=== PATIENT | male | born 1935 | race Caucasian/White ===

== ENCOUNTER 2019-02-04 21:14 | Emergency (ER) | payer OTHER ==
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
[2019-02-04 22:55] VITALS: BP 121/57; PULSE 66; TEMP 98.4; BMI 28.0
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
== END 2019-02-05 02:45 ==
LOC: JER 21:14
DX: S00.03XA Contusion of scalp, initial encounter (principal); S00.83XA Contusion of other part of head, initial encounter; Y04.2XXA Assault by strike against or bumped into by another person, initial encounter; Y93.89 Activity, other specified; Y92.098 Other place in other non-institutional residence as the place of occurrence of the external cause; Y99.8 Other external cause status; I10 Essential (primary) hypertension; M10.9 Gout, unspecified; E78.00 Pure hypercholesterolemia, unspecified; E07.9 Disorder of thyroid, unspecified
CPT/HCPCS: 70450-TC; 70486-TC; 72125-TC; 99282-25

== ENCOUNTER 2019-05-23 12:06 | Emergency (ER) | payer OTHER ==
[2019-05-23 12:23] VITALS: BP 133/67; PULSE 63; TEMP 97.8; BMI 28.0
--- NOTE | 2019-05-23 14:46 | PDOC ---
History of Present Illness - General Chief Complaint: Head/Neck problem Stated Complaint: SLIP AND FALL Time Seen by Provider: 05/23/19 12:52 History Source: Patient Exam Limitations: No Limitations Past History - Past Medical History Allergies/Adverse Reactions: Allergies Allergy/AdvReac Type Severity Reaction Status Date / Time No Known Allergies Allergy Verified 05/23/19 12:19 Home Medications: Ambulatory Orders Folic Acid 1 mg PO DAILY 08/25/11 Metoprolol "Xl" (Sustain Act) [Toprol Xl] 75 mg PO DAILY 08/25/11 Allopurinol [Zyloprim] 300 mg PO DAILY 04/08/12 Citalopram Hydrobromide [Celexa] 20 mg PO DAILY 04/08/12 Multivitamin [Multivitamins] 1 each PO DAILY 04/08/12 Budesonide/Formeterol Fumarate [SYMBICORT 160/4.5mcg -] 1 inh PO BID 05/23/19 Clopidogrel Bisulfate [Plavix] 75 mg PO DAILY 05/23/19 Ferrous Sulfate 325 mg PO DAILY 05/23/19 Lisinopril [Zestril] 2.5 mg PO DAILY 05/23/19 Ranitidine HCl [Zantac] 150 mg PO DAILY 05/23/19 Simvastatin [Zocor] 20 mg PO HS 05/23/19 Tamsulosin HCl [Flomax] 0.4 mg PO DAILY 05/23/19 Vit B Complex 100 Combo No.2 [B-100 Complex] 05/23/19 Vit D3-Vit K/Berberine/Hops [Ostera Tablet] 1 each PO DAILY 05/23/19 COPD: No GI Disorders: Yes HTN: Yes Hypercholesterolemia: Yes Thyroid Disease: Yes - Immunization History Immunization Up to Date: Yes - Psycho Social/Smoking Cessation Hx Smoking Status: Yes Smoking History: Current every day smoker Have you smoked in the past 12 months: Yes Number of Cigarettes Smoked Daily: 0 Information on smoking cessation initiated: No Hx Alcohol Use: No Drug/Substance Use Hx: No *Physical Exam - Vital Signs Last Vital Signs Temp Pulse Resp BP Pulse Ox 97.8 F 63 18 133/67 100 05/23/19 12:21 05/23/19 12:21 05/23/19 12:21 05/23/19 12:21 05/23/19 12:21 - Physical Exam General Appearance: No: Apparent Distress HEENT: positive: ORTIZ Neck: positive: Supple, Other (swelling along B/L lateral aspect of neck, nontender to touch, feels soft to touch, no change in skin color, no hematoma). negative: Rigid, Decreased range of motion, Tender lateral, Tender midline, Thyromegaly Respiratory/Chest: positive: Lungs Clear, Normal Breath Sounds. negative: Respiratory Distress Cardiovascular: positive: Regular Rhythm, Regular Rate, S1, S2. negative: Murmur Neurologic: positive: Fully Oriented, Alert, Normal Mood/Affect, Motor Strength 5/ ED Treatment Course - RADIOLOGY Radiology Studies Ordered: Category Date Time Status SOFT TISSUE NECK CT W/O CONTR [CT] Stat CT Scan 05/23/19 13:07 Completed Medical Decision Making - Medical Decision Making 83 y/o M hx of HTN, HLD, gout from [facility] presents for L sided lateral neck swelling since mechanical fall out of chair last week. States he did not even notice the swelling until a doctor evaluated him, noticed it and advised him to come to ER for evaluation. Denies dizziness, sob, cp, abd pain, n/v, numbness/tingling/weakness of extremities, headache, neck pain. CT soft tissue neck with no acute findings noted Does not appear as hematoma and does not cause patient any pain D/W radiologist as well regarding CT findings Cause of swelling unclear but not affecting airway Stable for dc 05/23/19 14:47 Discharge - Discharge Information Problems reviewed: Yes Clinical Impression/Diagnosis: Fall Qualifiers: Encounter type: initial encounter Qualified Code(s): W19.XXXA - Unspecified fall, initial encounter Condition: Stable Disposition: HOME - Admission No - Additional Discharge Information Prescription Drug Monitoring Program (I-STOP) results: I-STOP not reviewed - Follow up/Referral Referrals: Nara Hernandez [Primary Care Provider] - 2 Days - Patient Discharge Instructions Additional Instructions: Thank you for choosing [facility]. It was a pleasure taking care of you. Your CT scan of neck was unremarkable Please follow-up outpatient with your doctor for further evaluation Return to the Emergency Department if your symptoms worsen or persist or have other concerning symptoms. - Post Discharge Activity
== END 2019-05-23 14:58 | disposition home or self-care (01) ==
LOC: JERFT 12:06
DX: R22.1 Localized swelling, mass and lump, neck (principal); Y93.89 Activity, other specified; W07.XXXA Fall from chair, initial encounter; Y92.098 Other place in other non-institutional residence as the place of occurrence of the external cause; Y99.8 Other external cause status; I10 Essential (primary) hypertension; E78.5 Hyperlipidemia, unspecified; E07.9 Disorder of thyroid, unspecified; F17.210 Nicotine dependence, cigarettes, uncomplicated; Z87.19 Personal history of other diseases of the digestive system; Z79.02 Long term (current) use of antithrombotics/antiplatelets
CPT/HCPCS: 70490-TC; 99281-25

== ENCOUNTER 2019-06-08 10:08 | Emergency (ER) | payer OTHER ==
[2019-06-08 10:19] VITALS: BMI 27.4
[2019-06-08] MEDS ORDERED: DIPHTH,PERTUSS(ACELL),TET 0.5 ML DISP.SYRIN IM ONE ×2 (10:39→10:47)
[2019-06-08] MEDS ORDERED: ACETAMINOPHEN 500 MG TABLET (FP) PO ONE (10:45)
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
[2019-06-08] MEDS ORDERED: ACETAMINOPHEN 500 MG TABLET (FP) ONE (11:09)
[2019-06-08 14:29] VITALS: BP 126/56; PULSE 65; TEMP 97.9
== END 2019-06-08 17:07 | disposition home or self-care (01) ==
LOC: JER 10:08
PROC: 0HQFXZZ Repair Right Hand Skin, External Approach (ICD-10-PCS; principal; 2019-06-08)
DX: S51.011A Laceration without foreign body of right elbow, initial encounter (principal); X58.XXXA Exposure to other specified factors, initial encounter; Y93.89 Activity, other specified; Y92.89 Other specified places as the place of occurrence of the external cause; Y99.8 Other external cause status; Z87.891 Personal history of nicotine dependence; E07.9 Disorder of thyroid, unspecified; I10 Essential (primary) hypertension; K92.9 Disease of digestive system, unspecified
CPT/HCPCS: 70450-TC; 72125-TC; 73070-TC-RT-FY; 90715; 99282-25

== ENCOUNTER 2020-04-21 09:07 | Inpatient (IN) | payer OTHER ==
[2020-04-21 11:16] LABS: BASO % 0.9 % (0-2.0); EOS % 0.9 % (0-4.5); HEMATOCRIT 29.7 % (35.4-49); HEMOGLOBIN 9.7 GM/dL (11.7-16.9); MCH 29.6 pg (25.7-33.7); MCHC 32.7 g/dl (32.0-35.9); MEAN CELL VOLUME 90.5 fl (80-96); MEAN PLT VOLUME 8.8 fl (7.5-11.1); NEUT % 82.2 % (42.8-82.8); PLATELET COUNT 176 K/MM3 (134-434); RBC 3.29 M/mm3 (4.00-5.60); RDW 15.7 % (11.9-15.9); WHITE BLOOD COUNT 5.6 K/mm3 (4.0-10.0)
[2020-04-21 11:52] LABS: CHLORIDE 106 mmol/L (98-107); SODIUM 142 mmol/L (136-145)
[2020-04-21 11:54] LABS: CALCIUM 13.4 mg/dL (8.5-10.1)
[2020-04-21 11:55] LABS: ALBUMIN 3.2 g/dl (3.4-5.0); ANION GAP 8 MMOL/L (8-16); CO2 27 mmol/L (21-32); GLUCOSE,RANDOM 92 mg/dL (74-106)
[2020-04-21 11:56] LABS: BLOOD UREA NITROGEN 57.8 mg/dL (7-18)
[2020-04-21] MEDS ORDERED: SODIUM CHLORIDE 0.9% 500 ML INFUS.BAG IV ONE ×3 (11:57→14:28)
[2020-04-21 11:58] LABS: CREATININE 3.5 mg/dL (0.55-1.3); SGOT/AST 34 U/L (15-37); SGPT/ALT 15 U/L (13-61)
[2020-04-21 12:00] LABS: BILIRUBIN,TOTAL 0.4 mg/dL (0.2-1); TOT PROT 6.1 g/dl (6.4-8.2)
[2020-04-21 12:01] LABS: ALK PHOS 60 U/L (45-117)
[2020-04-21 16:38] LABS: URINE APPEARANCE CLEAR; URINE BILIRUBIN NEGATIVE (NEGATIVE); URINE COLOR YELLOW; URINE GLUCOSE (UA) NEGATIVE (NEGATIVE); URINE KETONE NEGATIVE (NEGATIVE); URINE LEUK ESTERASE NEGATIVE (NEGATIVE); URINE NITRITE NEGATIVE (NEGATIVE); URINE PROTEIN TRACE (NEGATIVE); URINE UROBILINOGEN 0.2 mg/dL (0.2-1.0)
[2020-04-21] MEDS ORDERED: traMADol HCL 50 MG TABLET PO PRN (17:38)
[2020-04-21] MEDS ORDERED: SODIUM CHLORIDE 1,000 ML IV SCH (18:00)
[2020-04-21] MEDS: MELATONIN 5 MG TABLETS PO SCH (22:15)
[2020-04-22 07:16] LABS: HEMOGLOBIN 8.5 GM/dL (11.7-16.9); MCH 29.6 pg (25.7-33.7); MCHC 32.6 g/dl (32.0-35.9); MEAN CELL VOLUME 90.8 fl (80-96); MEAN PLT VOLUME 8.6 fl (7.5-11.1); PLATELET COUNT 146 K/MM3 (134-434); RBC 2.86 M/mm3 (4.00-5.60); RDW 15.9 % (11.9-15.9)
[2020-04-22 07:42] LABS: BLOOD UREA NITROGEN 47.8 mg/dL (7-18)
[2020-04-22 07:43] LABS: MAGNESIUM 1.1 mg/dL (1.8-2.4)
[2020-04-22 07:45] LABS: CREATININE 2.9 mg/dL (0.55-1.3)
[2020-04-22] MEDS: metoPROLOL SUCCINATE 25 MG TAB.SR.24H (FP) PO SCH (11:28)
[2020-04-22] MEDS: CLOPIDOGREL BISULFATE 75 MG TABLET (FP) PO SCH (11:29)
[2020-04-22] MEDS: FAMOTIDINE 20 MG TABLET PO SCH (11:29)
[2020-04-22] MEDS: CITALOPRAM HYDROBROMIDE 20 MG TABLET PO SCH (11:29)
[2020-04-22] MEDS ORDERED: FUROSEMIDE 40 MG/4 ML INJECTABLE VIAL IVPUSH ONE (13:05)
[2020-04-22] MEDS ORDERED: SODIUM CHLORIDE 1,000 ML IV SCH (18:30)
[2020-04-22] MEDS: MELATONIN 5 MG TABLETS PO SCH (21:45)
[2020-04-23 07:54] LABS: BASO % 1.2 % (0-2.0); EOS % 1.5 % (0-4.5); HEMATOCRIT 29.4 % (35.4-49); HEMOGLOBIN 9.8 GM/dL (11.7-16.9); LYMPH % 8.7 % (8-40); MCH 30.2 pg (25.7-33.7); MCHC 33.3 g/dl (32.0-35.9); MEAN CELL VOLUME 90.9 fl (80-96); MEAN PLT VOLUME 8.1 fl (7.5-11.1); MONO % 12.1 % (3.8-10.2); NEUT % 76.5 % (42.8-82.8); PLATELET COUNT 174 K/MM3 (134-434); RBC 3.24 M/mm3 (4.00-5.60); RDW 15.6 % (11.9-15.9)
[2020-04-23 08:18] LABS: CALCIUM 11.4 mg/dL (8.5-10.1)
[2020-04-23 08:19] LABS: ALBUMIN 2.8 g/dl (3.4-5.0); BLOOD UREA NITROGEN 45.3 mg/dL (7-18)
[2020-04-23 08:22] LABS: CREATININE 2.5 mg/dL (0.55-1.3)
[2020-04-23 08:23] LABS: BILIRUBIN,TOTAL 0.8 mg/dL (0.2-1); TOT PROT 5.5 g/dl (6.4-8.2)
[2020-04-23] MEDS: CITALOPRAM HYDROBROMIDE 20 MG TABLET PO SCH (09:31)
[2020-04-23] MEDS: CLOPIDOGREL BISULFATE 75 MG TABLET (FP) PO SCH (09:31)
[2020-04-23] MEDS: FAMOTIDINE 20 MG TABLET PO SCH (09:31)
[2020-04-23] MEDS: metoPROLOL SUCCINATE 25 MG TAB.SR.24H (FP) PO SCH (09:31)
[2020-04-23] MEDS: SODIUM CHLORIDE 1,000 ML IV SCH (14:02)
[2020-04-23] MEDS: MELATONIN 5 MG TABLETS PO SCH (22:24)
[2020-04-24] MEDS: SODIUM CHLORIDE 1,000 ML IV SCH ×3 (06:50→20:56)
[2020-04-24 07:12] LABS: BASO % 1.1 % (0-2.0); EOS % 1.7 % (0-4.5); HEMATOCRIT 25.8 % (35.4-49); HEMOGLOBIN 8.6 GM/dL (11.7-16.9); LYMPH % 9.8 % (8-40); MCH 30.2 pg (25.7-33.7); MCHC 33.2 g/dl (32.0-35.9); MEAN PLT VOLUME 8.3 fl (7.5-11.1); MONO % 15.1 % (3.8-10.2); NEUT % 72.3 % (42.8-82.8); PLATELET COUNT 155 K/MM3 (134-434); RBC 2.83 M/mm3 (4.00-5.60); WHITE BLOOD COUNT 4.7 K/mm3 (4.0-10.0)
[2020-04-24 07:29] LABS: CALCIUM 11.3 mg/dL (8.5-10.1)
[2020-04-24 07:30] LABS: ALBUMIN 2.5 g/dl (3.4-5.0); BLOOD UREA NITROGEN 40.7 mg/dL (7-18); MAGNESIUM 1.2 mg/dL (1.8-2.4)
[2020-04-24 07:31] LABS: BILIRUBIN,TOTAL 1.2 mg/dL (0.2-1)
[2020-04-24 07:32] LABS: PHOSPHOROUS 3.2 mg/dL (2.5-4.9)
[2020-04-24 07:33] LABS: CREATININE 2.4 mg/dL (0.55-1.3)
[2020-04-24] MEDS ORDERED: PT OWN MED DRAWER 7, Y5N ONE (09:46)
[2020-04-24] MEDS: FAMOTIDINE 20 MG TABLET PO SCH (09:55)
[2020-04-24] MEDS: CLOPIDOGREL BISULFATE 75 MG TABLET (FP) PO SCH (09:55)
[2020-04-24] MEDS: CITALOPRAM HYDROBROMIDE 20 MG TABLET PO SCH (09:55)
[2020-04-24] MEDS: metoPROLOL SUCCINATE 25 MG TAB.SR.24H (FP) PO SCH (09:55)
[2020-04-24 18:08] LABS: FREE KAPPA,SERUM 23.4 mg/L (3.3-19.4)
[2020-04-24] MEDS: MELATONIN 5 MG TABLETS PO SCH (21:04)
[2020-04-25 08:11] LABS: BASO % 0.9 % (0-2.0); EOS % 1.7 % (0-4.5); HEMATOCRIT 26.7 % (35.4-49); HEMOGLOBIN 8.8 GM/dL (11.7-16.9); LYMPH % 8.4 % (8-40); MCH 29.9 pg (25.7-33.7); MCHC 32.9 g/dl (32.0-35.9); MEAN CELL VOLUME 90.8 fl (80-96); MEAN PLT VOLUME 8.1 fl (7.5-11.1); MONO % 14.3 % (3.8-10.2); NEUT % 74.7 % (42.8-82.8); PLATELET COUNT 162 K/MM3 (134-434); RBC 2.94 M/mm3 (4.00-5.60); RDW 15.5 % (11.9-15.9); WHITE BLOOD COUNT 4.7 K/mm3 (4.0-10.0)
[2020-04-25 08:24] LABS: ALBUMIN 2.5 g/dl (3.4-5.0); CALCIUM 10.7 mg/dL (8.5-10.1)
[2020-04-25 08:25] LABS: BLOOD UREA NITROGEN 39.1 mg/dL (7-18); MAGNESIUM 1.2 mg/dL (1.8-2.4)
[2020-04-25 08:28] LABS: CREATININE 2.2 mg/dL (0.55-1.3); PHOSPHOROUS 3.1 mg/dL (2.5-4.9)
[2020-04-25 08:29] LABS: BILIRUBIN,TOTAL 0.9 mg/dL (0.2-1)
[2020-04-25] MEDS: CITALOPRAM HYDROBROMIDE 20 MG TABLET PO SCH (09:39)
[2020-04-25] MEDS: CLOPIDOGREL BISULFATE 75 MG TABLET (FP) PO SCH (09:39)
[2020-04-25] MEDS: metoPROLOL SUCCINATE 25 MG TAB.SR.24H (FP) PO SCH (09:39)
[2020-04-25] MEDS: FAMOTIDINE 20 MG TABLET PO SCH (09:39)
[2020-04-25] MEDS: SODIUM CHLORIDE 1,000 ML IV SCH ×2 (09:42→16:45)
[2020-04-25] MEDS ORDERED: MAGNESIUM 2GM/50ML STERILE WATER IVPB IVPB ONE (11:45)
[2020-04-25] MEDS: MELATONIN 5 MG TABLETS PO SCH (21:10)
[2020-04-26 07:50] LABS: BASO % 1.5 % (0-2.0); EOS % 1.7 % (0-4.5); HEMOGLOBIN 8.9 GM/dL (11.7-16.9); LYMPH % 7.8 % (8-40); MCH 29.7 pg (25.7-33.7); MEAN CELL VOLUME 89.9 fl (80-96); MONO % 14.2 % (3.8-10.2); NEUT % 74.8 % (42.8-82.8); PLATELET COUNT 173 K/MM3 (134-434); WHITE BLOOD COUNT 4.3 K/mm3 (4.0-10.0)
[2020-04-26 08:07] LABS: CALCIUM 10.3 mg/dL (8.5-10.1)
[2020-04-26 08:08] LABS: ALBUMIN 2.4 g/dl (3.4-5.0); BLOOD UREA NITROGEN 37.9 mg/dL (7-18); MAGNESIUM 1.4 mg/dL (1.8-2.4)
[2020-04-26 08:11] LABS: BILIRUBIN,TOTAL 0.4 mg/dL (0.2-1)
[2020-04-26] MEDS ORDERED: MAGNESIUM SULF 50% (8.12 MEQ/2 ML-1 GM VIAL) IVPB ONE (09:24)
[2020-04-26] MEDS ORDERED: MAGNESIUM SULFATE IN WATER 2 GM/50 ML IVPB IVPB ONE (09:30)
[2020-04-26] MEDS: metoPROLOL SUCCINATE 25 MG TAB.SR.24H (FP) PO SCH (10:59)
[2020-04-26] MEDS: CLOPIDOGREL BISULFATE 75 MG TABLET (FP) PO SCH (10:59)
[2020-04-26] MEDS: FAMOTIDINE 20 MG TABLET PO SCH (10:59)
[2020-04-26] MEDS: CITALOPRAM HYDROBROMIDE 20 MG TABLET PO SCH (11:00)
[2020-04-26] MEDS: MELATONIN 5 MG TABLETS PO SCH (21:16)
[2020-04-26] MEDS: SODIUM CHLORIDE 1,000 ML IV SCH ×2 (21:17→21:22)
[2020-04-27] MEDS: SODIUM CHLORIDE 1,000 ML IV SCH ×3 (04:01→14:24)
[2020-04-27 06:40] LABS: BASO % 1.3 % (0-2.0); EOS % 1.4 % (0-4.5); HEMATOCRIT 27.4 % (35.4-49); LYMPH % 6.6 % (8-40); MCH 29.7 pg (25.7-33.7); MCHC 32.6 g/dl (32.0-35.9); MEAN CELL VOLUME 90.9 fl (80-96); MEAN PLT VOLUME 8.3 fl (7.5-11.1); MONO % 14.8 % (3.8-10.2); NEUT % 75.9 % (42.8-82.8); PLATELET COUNT 177 K/MM3 (134-434); RBC 3.02 M/mm3 (4.00-5.60); RDW 15.8 % (11.9-15.9); WHITE BLOOD COUNT 5.2 K/mm3 (4.0-10.0)
[2020-04-27 07:11] LABS: ALBUMIN 2.3 g/dl (3.4-5.0)
[2020-04-27 07:12] LABS: BLOOD UREA NITROGEN 40.8 mg/dL (7-18); MAGNESIUM 1.9 mg/dL (1.8-2.4)
[2020-04-27 07:16] LABS: BILIRUBIN,TOTAL 0.4 mg/dL (0.2-1); TOT PROT 4.8 g/dl (6.4-8.2)
[2020-04-27] MEDS: CITALOPRAM HYDROBROMIDE 20 MG TABLET PO SCH (09:28)
[2020-04-27] MEDS: CLOPIDOGREL BISULFATE 75 MG TABLET (FP) PO SCH (09:28)
[2020-04-27] MEDS: FAMOTIDINE 20 MG TABLET PO SCH (09:28)
[2020-04-27] MEDS: MELATONIN 5 MG TABLETS PO SCH (21:06)
[2020-04-28] MEDS: SODIUM CHLORIDE 1,000 ML IV SCH ×2 (00:43→14:43)
[2020-04-28 00:44] LABS: URINE APPEARANCE CLOUDY; URINE BILIRUBIN NEGATIVE (NEGATIVE); URINE COLOR YELLOW; URINE GLUCOSE (UA) NEGATIVE (NEGATIVE); URINE KETONE NEGATIVE (NEGATIVE); URINE LEUK ESTERASE NEGATIVE (NEGATIVE); URINE NITRITE NEGATIVE (NEGATIVE); URINE PROTEIN NEGATIVE (NEGATIVE); URINE UROBILINOGEN 0.2 mg/dL (0.2-1.0)
[2020-04-28 06:45] LABS: BASO % 1.1 % (0-2.0); EOS % 0.8 % (0-4.5); HEMATOCRIT 27.4 % (35.4-49); HEMOGLOBIN 9.1 GM/dL (11.7-16.9); LYMPH % 7.5 % (8-40); MCHC 33.2 g/dl (32.0-35.9); MEAN CELL VOLUME 90.4 fl (80-96); MEAN PLT VOLUME 8.2 fl (7.5-11.1); MONO % 10.9 % (3.8-10.2); NEUT % 79.7 % (42.8-82.8); PLATELET COUNT 181 K/MM3 (134-434); RBC 3.03 M/mm3 (4.00-5.60); RDW 15.7 % (11.9-15.9); WHITE BLOOD COUNT 4.6 K/mm3 (4.0-10.0)
[2020-04-28 06:58] LABS: CALCIUM 9.6 mg/dL (8.5-10.1)
[2020-04-28 07:00] LABS: ALBUMIN 2.4 g/dl (3.4-5.0); BLOOD UREA NITROGEN 41.2 mg/dL (7-18); MAGNESIUM 1.4 mg/dL (1.8-2.4)
[2020-04-28 07:02] LABS: PHOSPHOROUS 2.9 mg/dL (2.5-4.9)
[2020-04-28 07:04] LABS: BILIRUBIN,TOTAL 0.4 mg/dL (0.2-1)
[2020-04-28 07:05] LABS: TOT PROT 4.9 g/dl (6.4-8.2)
[2020-04-28] MEDS ORDERED: SODIUM CHLORIDE 1,000 ML IV SCH (07:29)
[2020-04-28] MEDS ORDERED: MAGNESIUM SULF 50% (8.12 MEQ/2 ML-1 GM VIAL) IVPB ONE (07:30)
[2020-04-28] MEDS: metoPROLOL SUCCINATE 25 MG TAB.SR.24H (FP) PO SCH (09:26)
[2020-04-28] MEDS: FAMOTIDINE 20 MG TABLET PO SCH (09:26)
[2020-04-28] MEDS: CITALOPRAM HYDROBROMIDE 20 MG TABLET PO SCH (09:26)
[2020-04-28 13:44] VITALS: BMI 23.8
[2020-04-28] MEDS: MELATONIN 5 MG TABLETS PO SCH (21:17)
[2020-04-29] MEDS: SODIUM CHLORIDE 1,000 ML IV SCH (05:40)
[2020-04-29 08:40] LABS: BASO % 2.5 % (0-2.0); EOS % 1.9 % (0-4.5); HEMATOCRIT 25.6 % (35.4-49); HEMOGLOBIN 8.5 GM/dL (11.7-16.9); LYMPH % 8.4 % (8-40); MCH 30.1 pg (25.7-33.7); MCHC 33.4 g/dl (32.0-35.9); MEAN CELL VOLUME 90.1 fl (80-96); MEAN PLT VOLUME 8.5 fl (7.5-11.1); MONO % 12.2 % (3.8-10.2); PLATELET COUNT 177 K/MM3 (134-434); RBC 2.84 M/mm3 (4.00-5.60); RDW 15.5 % (11.9-15.9); WHITE BLOOD COUNT 4.7 K/mm3 (4.0-10.0)
[2020-04-29 08:48] LABS: ALBUMIN 2.3 g/dl (3.4-5.0); CALCIUM 9.7 mg/dL (8.5-10.1); MAGNESIUM 1.6 mg/dL (1.8-2.4)
[2020-04-29 08:53] LABS: BILIRUBIN,TOTAL 0.8 mg/dL (0.2-1); TOT PROT 4.8 g/dl (6.4-8.2)
[2020-04-29] MEDS: FAMOTIDINE 20 MG TABLET PO SCH (09:07)
[2020-04-29] MEDS: metoPROLOL SUCCINATE 25 MG TAB.SR.24H (FP) PO SCH (09:07)
[2020-04-29] MEDS: CITALOPRAM HYDROBROMIDE 20 MG TABLET PO SCH (09:07)
[2020-04-29] MEDS ORDERED: POLYETHYLENE GLYCOL 3350 119 GM BTL PO ONE (10:41)
[2020-04-29] MEDS ORDERED: MAGNESIUM SULF 50% (8.12 MEQ/2 ML-1 GM VIAL) IVPB ONE (14:22)
[2020-04-29] MEDS: MELATONIN 5 MG TABLETS PO SCH (21:51)
[2020-04-30 07:24] LABS: BASO % 1.6 % (0-2.0); EOS % 1.3 % (0-4.5); HEMATOCRIT 27.2 % (35.4-49); HEMOGLOBIN 9.1 GM/dL (11.7-16.9); LYMPH % 7.8 % (8-40); MCHC 33.6 g/dl (32.0-35.9); MEAN CELL VOLUME 89.4 fl (80-96); MEAN PLT VOLUME 8.6 fl (7.5-11.1); MONO % 12.4 % (3.8-10.2); NEUT % 76.9 % (42.8-82.8); PLATELET COUNT 192 K/MM3 (134-434); RBC 3.04 M/mm3 (4.00-5.60); RDW 15.1 % (11.9-15.9)
[2020-04-30 07:33] LABS: ALBUMIN 2.5 g/dl (3.4-5.0); BLOOD UREA NITROGEN 37.2 mg/dL (7-18); CALCIUM 10.2 mg/dL (8.5-10.1); MAGNESIUM 1.8 mg/dL (1.8-2.4)
[2020-04-30 07:36] LABS: CREATININE 2.1 mg/dL (0.55-1.3)
[2020-04-30 07:38] LABS: BILIRUBIN,TOTAL 0.4 mg/dL (0.2-1); TOT PROT 5.1 g/dl (6.4-8.2)
[2020-04-30] MEDS: CITALOPRAM HYDROBROMIDE 20 MG TABLET PO SCH (09:14)
[2020-04-30] MEDS: metoPROLOL SUCCINATE 25 MG TAB.SR.24H (FP) PO SCH (09:14)
[2020-04-30] MEDS: FAMOTIDINE 20 MG TABLET PO SCH (09:14)
[2020-04-30] MEDS: MELATONIN 5 MG TABLETS PO SCH (21:09)
[2020-05-01 08:03] LABS: INR 1.13 (0.83-1.09); PROTHROMBIN TIME (PATIENT) 13.9 SEC (9.7-13.0)
[2020-05-01] MEDS: FAMOTIDINE 20 MG TABLET PO SCH (09:50)
[2020-05-01] MEDS: metoPROLOL SUCCINATE 25 MG TAB.SR.24H (FP) PO SCH (09:50)
[2020-05-01] MEDS: CITALOPRAM HYDROBROMIDE 20 MG TABLET PO SCH (09:50)
[2020-05-01 15:06] LABS: ALBUMIN % 20.6 % (.); ALPHA-1 FOR UPE 4.5 % (.); TOTAL PROTEIN, URINE 12.5 mg/dL (Not Estab.)
[2020-05-01] MEDS: MELATONIN 5 MG TABLETS PO SCH (21:12)
[2020-05-02 07:23] LABS: BASO % 1.5 % (0-2.0); HEMATOCRIT 30.2 % (35.4-49); HEMOGLOBIN 10.2 GM/dL (11.7-16.9); LYMPH % 7.3 % (8-40); MCH 30.2 pg (25.7-33.7); MCHC 33.9 g/dl (32.0-35.9); MEAN CELL VOLUME 89.2 fl (80-96); MEAN PLT VOLUME 8.9 fl (7.5-11.1); NEUT % 76.2 % (42.8-82.8); PLATELET COUNT 232 K/MM3 (134-434); RBC 3.39 M/mm3 (4.00-5.60); RDW 15.5 % (11.9-15.9); WHITE BLOOD COUNT 7.1 K/mm3 (4.0-10.0)
[2020-05-02 07:41] LABS: ALBUMIN 2.5 g/dl (3.4-5.0); CALCIUM 10.4 mg/dL (8.5-10.1)
[2020-05-02 07:42] LABS: BLOOD UREA NITROGEN 39.4 mg/dL (7-18); MAGNESIUM 1.5 mg/dL (1.8-2.4)
[2020-05-02 07:44] LABS: PHOSPHOROUS 3.6 mg/dL (2.5-4.9)
[2020-05-02 07:45] LABS: CREATININE 2.1 mg/dL (0.55-1.3)
[2020-05-02 07:46] LABS: BILIRUBIN,TOTAL 0.6 mg/dL (0.2-1); TOT PROT 5.2 g/dl (6.4-8.2)
[2020-05-02] MEDS: CITALOPRAM HYDROBROMIDE 20 MG TABLET PO SCH (10:44)
[2020-05-02] MEDS: metoPROLOL SUCCINATE 25 MG TAB.SR.24H (FP) PO SCH (10:44)
[2020-05-02] MEDS: FAMOTIDINE 20 MG TABLET PO SCH (10:44)
[2020-05-02 11:45] VITALS: PULSE 71
[2020-05-02 18:24] VITALS: BP 162/60; TEMP 97.7
== END 2020-05-02 16:00 | DRG 682 ==
LOC: JER 09:07 → JERBED 14:13 → J4S 22:04 → J7W 04-29 18:44
PROVIDERS: ADMIT Internal Medicine
PROC: 07D63ZX Extraction of Left Axillary Lymphatic, Percutaneous Approach, Diagnostic (ICD-10-PCS; principal; 2020-05-02)
DX: N17.9 Acute kidney failure, unspecified (principal); U07.1 COVID-19; I45.2 Bifascicular block; C83.34 Diffuse large B-cell lymphoma, lymph nodes of axilla and upper limb; R55 Syncope and collapse; I10 Essential (primary) hypertension; E78.5 Hyperlipidemia, unspecified; E83.52 Hypercalcemia; R59.1 Generalized enlarged lymph nodes; D64.9 Anemia, unspecified; I95.9 Hypotension, unspecified; E86.0 Dehydration; I65.22 Occlusion and stenosis of left carotid artery; R16.2 Hepatomegaly with splenomegaly, not elsewhere classified; N18.9 Chronic kidney disease, unspecified; N40.0 Benign prostatic hyperplasia without lower urinary tract symptoms; F32.9 Major depressive disorder, single episode, unspecified; I25.10 Atherosclerotic heart disease of native coronary artery without angina pectoris
CPT/HCPCS: 36415; 70450-TC; 71045-TC-FY; 71250-TC; 72125-TC; 74176-TC; 76775-TC; 76942-TC; 77074-TC-FY; 80048; 80053; 81003; 82306; 82310; 82550; 83615; 83735; 83883; 83970; 84100; 84153; 84155; 84156; 84165; 84166; 84484; 85025; 85027; 85610; 87086; 87899; 93005; 93010; 93306-TC; 93880-TC; 97116-GP; 97161-GP; 99285-25; C9803; U0003

== ENCOUNTER 2020-05-04 18:31 | Inpatient (IN) | payer OTHER ==
[2020-05-04] MEDS ORDERED: SODIUM CHLORIDE 0.9% 500 ML INFUS.BAG IV ONE (18:45)
[2020-05-04] MEDS ORDERED: SODIUM CHLORIDE 500 ML IV SCH (20:45)
[2020-05-04] MEDS ORDERED: HEPARIN NA (PORCINE) 5,000 UNITS/ML 1ML VIAL SQ SCH (22:00)
[2020-05-04 22:51] VITALS: BMI 22.7
[2020-05-05 07:17] LABS: BASO % 1.8 % (0-2.0); EOS % 0.9 % (0-4.5); HEMATOCRIT 24.2 % (35.4-49); HEMOGLOBIN 8.1 GM/dL (11.7-16.9); MCHC 33.5 g/dl (32.0-35.9); MEAN CELL VOLUME 89.4 fl (80-96); MONO % 13.6 % (3.8-10.2); NEUT % 75.7 % (42.8-82.8); PLATELET COUNT 190 K/MM3 (134-434); RBC 2.71 M/mm3 (4.00-5.60); RDW 15.3 % (11.9-15.9); WHITE BLOOD COUNT 4.3 K/mm3 (4.0-10.0)
[2020-05-05 07:18] LABS: INR 1.07 (0.83-1.09); PROTHROMBIN TIME (PATIENT) 12.9 SEC (9.7-13.0)
[2020-05-05 07:34] LABS: ALBUMIN 2.4 g/dl (3.4-5.0); BLOOD UREA NITROGEN 49.5 mg/dL (7-18); CALCIUM 10.2 mg/dL (8.5-10.1); MAGNESIUM 1.6 mg/dL (1.8-2.4)
[2020-05-05 07:37] LABS: CREATININE 2.8 mg/dL (0.55-1.3)
[2020-05-05 07:39] LABS: BILIRUBIN,TOTAL 0.4 mg/dL (0.2-1); TOT PROT 4.8 g/dl (6.4-8.2)
[2020-05-05] MEDS: CITALOPRAM HYDROBROMIDE 20 MG TABLET PO SCH (13:44)
[2020-05-05] MEDS: ATORVASTATIN CA 20 MG TABLET (FP) PO SCH (22:17)
[2020-05-06 07:55] LABS: BASO % 0.7 % (0-2.0); EOS % 0.8 % (0-4.5); HEMATOCRIT 24.9 % (35.4-49); HEMOGLOBIN 8.3 GM/dL (11.7-16.9); LYMPH % 8.7 % (8-40); MCHC 33.4 g/dl (32.0-35.9); MEAN CELL VOLUME 89.9 fl (80-96); NEUT % 74.8 % (42.8-82.8); PLATELET COUNT 198 K/MM3 (134-434); RBC 2.77 M/mm3 (4.00-5.60); RDW 15.4 % (11.9-15.9); WHITE BLOOD COUNT 4.3 K/mm3 (4.0-10.0)
[2020-05-06 08:35] LABS: ALBUMIN 2.4 g/dl (3.4-5.0); CALCIUM 10.2 mg/dL (8.5-10.1); MAGNESIUM 1.6 mg/dL (1.8-2.4)
[2020-05-06 08:38] LABS: CREATININE 2.6 mg/dL (0.55-1.3)
[2020-05-06 08:39] LABS: PHOSPHOROUS 3.1 mg/dL (2.5-4.9)
[2020-05-06 08:40] LABS: BILIRUBIN,TOTAL 0.5 mg/dL (0.2-1)
[2020-05-06] MEDS: CLOPIDOGREL BISULFATE 75 MG TABLET (FP) PO SCH (10:04)
[2020-05-06] MEDS: FOLIC ACID 1 MG TABLET (FP) PO SCH (10:04)
[2020-05-06] MEDS: ALLOPURINOL 300 MG TABLET (FP) PO SCH (10:04)
[2020-05-06] MEDS: TAMSULOSIN HCL 0.4 MG CAP PO SCH (10:04)
[2020-05-06] MEDS: LISINOPRIL 5 MG TABLET PO SCH (10:04)
[2020-05-06] MEDS: CITALOPRAM HYDROBROMIDE 20 MG TABLET PO SCH (10:04)
[2020-05-06] MEDS: FAMOTIDINE 20 MG TABLET PO SCH (10:05)
[2020-05-06] MEDS: THIAMINE HCL 100 MG TABLET (FP) PO SCH (10:05)
[2020-05-06] MEDS: ATORVASTATIN CA 20 MG TABLET (FP) PO SCH (22:07)
[2020-05-07 07:04] LABS: BLOOD UREA NITROGEN 40.3 mg/dL (7-18); CALCIUM 10.9 mg/dL (8.5-10.1)
[2020-05-07 07:07] LABS: CREATININE 2.6 mg/dL (0.55-1.3)
[2020-05-07 08:25] VITALS: BP 124/49; PULSE 72; TEMP 97.3
[2020-05-07] MEDS: CLOPIDOGREL BISULFATE 75 MG TABLET (FP) PO SCH (09:39)
[2020-05-07] MEDS: THIAMINE HCL 100 MG TABLET (FP) PO SCH (09:39)
[2020-05-07] MEDS: FAMOTIDINE 20 MG TABLET PO SCH (09:39)
[2020-05-07] MEDS: CITALOPRAM HYDROBROMIDE 20 MG TABLET PO SCH (09:39)
[2020-05-07] MEDS: LISINOPRIL 5 MG TABLET PO SCH (09:39)
[2020-05-07] MEDS: ALLOPURINOL 300 MG TABLET (FP) PO SCH (09:39)
[2020-05-07] MEDS: FOLIC ACID 1 MG TABLET (FP) PO SCH (09:39)
[2020-05-07] MEDS: TAMSULOSIN HCL 0.4 MG CAP PO SCH (09:39)
[2020-05-07] MEDS ORDERED: SODIUM CHLORIDE 1,000 ML IV SCH (11:15)
== END 2020-05-07 15:32 | DRG 683 ==
LOC: JER 18:31 → JERBED 18:44 → J4W 22:00
PROVIDERS: ADMIT Internal Medicine; ATTEND Internal Medicine
DX: N17.9 Acute kidney failure, unspecified (principal); I45.2 Bifascicular block; I45.10 Unspecified right bundle-branch block; I25.10 Atherosclerotic heart disease of native coronary artery without angina pectoris; N40.0 Benign prostatic hyperplasia without lower urinary tract symptoms; M10.9 Gout, unspecified; E78.5 Hyperlipidemia, unspecified; R55 Syncope and collapse; D64.9 Anemia, unspecified; D47.2 Monoclonal gammopathy; R74.01 Elevation of levels of liver transaminase levels; I12.9 Hypertensive chronic kidney disease with stage 1 through stage 4 chronic kidney disease, or unspecified chronic kidney disease; N18.9 Chronic kidney disease, unspecified; R59.1 Generalized enlarged lymph nodes; E83.52 Hypercalcemia; I65.22 Occlusion and stenosis of left carotid artery; R29.6 Repeated falls
CPT/HCPCS: 36415; 70450-TC; 70486-TC; 71045-TC-FY; 72125-TC; 76705-TC; 80048; 80053; 81003; 82272; 82550; 82565; 83735; 84100; 84156; 84300; 84484; 85025; 85610; 87086; 90715; 93005; 93010; 97116-GP; 97161-GP; 99285-25; C9803; J1644; U0003

== ENCOUNTER 2020-05-25 11:46 | Inpatient (IN) | payer OTHER ==
[2020-05-25] MEDS: PANTOPRAZOLE SODIUM 40 MG VIAL IVPUSH SCH (12:40)
[2020-05-25 13:01] LABS: BASO % 0.7 % (0-2.0); EOS % 0.4 % (0-4.5); HEMATOCRIT 26.5 % (35.4-49); HEMOGLOBIN 8.7 GM/dL (11.7-16.9); LYMPH % 2.4 % (8-40); MCH 28.6 pg (25.7-33.7); MCHC 32.8 g/dl (32.0-35.9); MEAN CELL VOLUME 87.3 fl (80-96); MEAN PLT VOLUME 8.6 fl (7.5-11.1); MONO % 5.9 % (3.8-10.2); NEUT % 90.6 % (42.8-82.8); PLATELET COUNT 327 K/MM3 (134-434); RBC 3.03 M/mm3 (4.00-5.60); RDW 15.4 % (11.9-15.9); WHITE BLOOD COUNT 13.8 K/mm3 (4.0-10.0)
[2020-05-25] MEDS ORDERED: SODIUM CHLORIDE 1,000 ML IV STA ×2 (13:02→23:45)
[2020-05-25 13:11] LABS: INR 1.09 (0.83-1.09); PROTHROMBIN TIME (PATIENT) 13.4 SEC (9.7-13.0)
[2020-05-25 13:14] LABS: ACTIVATED PTT 24.9 SECONDS (25.2-36.5)
[2020-05-25 13:17] LABS: POTASSIUM 4.5 mmol/L (3.5-5.1)
[2020-05-25 13:18] LABS: CALCIUM 12.8 mg/dL (8.5-10.1)
[2020-05-25 13:19] LABS: BLOOD UREA NITROGEN 98.9 mg/dL (7-18); MAGNESIUM 1.7 mg/dL (1.8-2.4)
[2020-05-25 13:22] LABS: CREATININE 4.3 mg/dL (0.55-1.3)
[2020-05-25 13:24] LABS: BILIRUBIN,TOTAL 0.4 mg/dL (0.2-1); TOT PROT 4.3 g/dl (6.4-8.2)
[2020-05-25] MEDS ORDERED: PANTOPRAZOLE SODIUM 40 MG VIAL ONE (13:24)
[2020-05-25] MEDS: PANTOPRAZOLE SODIUM 80 MG in SODIUM CHLORIDE 100 ML IVPB SCH ×2 (13:37→23:30)
[2020-05-25] MEDS ORDERED: LACTATED RINGERS SOLUTION 1000 ML INFUS.BAG IV ONE (16:04)
[2020-05-25] MEDS ORDERED: SODIUM CHLORIDE 1,000 ML IV SCH (23:45)
[2020-05-26] MEDS ORDERED: METOPROLOL TARTRATE 5 MG/5 ML VIAL IVPUSH PRN (00:09)
[2020-05-26] MEDS ORDERED: MIDODRINE HCL 2.5 MG TABLET PO SCH (06:00)
[2020-05-26 09:44] LABS: HEMATOCRIT 27.8 % (35.4-49); HEMOGLOBIN 9.2 GM/dL (11.7-16.9); MCH 28.8 pg (25.7-33.7); MCHC 32.9 g/dl (32.0-35.9); MEAN CELL VOLUME 87.7 fl (80-96); MEAN PLT VOLUME 8.4 fl (7.5-11.1); PLATELET COUNT 225 K/MM3 (134-434); RBC 3.17 M/mm3 (4.00-5.60); RDW 14.8 % (11.9-15.9); WHITE BLOOD COUNT 5.6 K/mm3 (4.0-10.0)
[2020-05-26] MEDS ORDERED: SODIUM CHLORIDE 1,000 ML IV SCH (09:53)
[2020-05-26 10:02] LABS: POTASSIUM 4.4 mmol/L (3.5-5.1)
[2020-05-26] MEDS: MIDODRINE HCL 5 MG TABLET PO SCH ×3 (10:21→18:38)
[2020-05-26] MEDS: ATORVASTATIN CA 10 MG TABLET (FP) PO SCH (10:21)
[2020-05-26] MEDS: FOLIC ACID 1 MG TABLET (FP) PO SCH (10:21)
[2020-05-26] MEDS: VITAMIN B COMPLEX W/C COMBO TABLET (FP) PO SCH (10:21)
[2020-05-26] MEDS: THIAMINE HCL 100 MG TABLET (FP) PO SCH (10:22)
[2020-05-26] MEDS: metoPROLOL SUCCINATE 25 MG TAB.SR.24H (FP) PO SCH (10:22)
[2020-05-26] MEDS: ALLOPURINOL 300 MG TABLET (FP) PO SCH (10:25)
[2020-05-26] MEDS: TAMSULOSIN HCL 0.4 MG CAP PO SCH (10:25)
[2020-05-26] MEDS: PANTOPRAZOLE SODIUM 40 MG VIAL IVPUSH SCH ×2 (10:25→21:02)
[2020-05-26 10:46] LABS: CALCIUM 11.1 mg/dL (8.5-10.1); MAGNESIUM 1.4 mg/dL (1.8-2.4)
[2020-05-26 10:48] LABS: BLOOD UREA NITROGEN 87.1 mg/dL (7-18)
[2020-05-26 10:49] LABS: CREATININE 3.9 mg/dL (0.55-1.3)
[2020-05-26 10:54] LABS: TOT PROT 4.1 g/dl (6.4-8.2)
[2020-05-26 10:55] LABS: BILIRUBIN,TOTAL 1.2 mg/dL (0.2-1)
[2020-05-26] MEDS ORDERED: PT OWN MED DRAWER 7, Y5N ONE (12:19)
[2020-05-26] MEDS: MEGESTROL ACETATE 400 MG/10 ML UNIT DOSE CUP PO SCH (12:56)
[2020-05-26] MEDS: POLYETHYLENE GLYCOL 3350 119 GM BTL PO SCH ×2 (15:58→21:02)
[2020-05-26] MEDS: SODIUM CHLORIDE 1,000 ML IV SCH (18:38)
[2020-05-27] MEDS: SODIUM CHLORIDE 1,000 ML IV SCH ×2 (02:00→16:35)
[2020-05-27] MEDS: POLYETHYLENE GLYCOL 3350 119 GM BTL PO SCH ×3 (05:33→21:05)
[2020-05-27 07:47] LABS: BASO % 1.1 % (0-2.0); EOS % 1.9 % (0-4.5); HEMATOCRIT 27.6 % (35.4-49); HEMOGLOBIN 9.3 GM/dL (11.7-16.9); LYMPH % 7.3 % (8-40); MCH 29.7 pg (25.7-33.7); MCHC 33.9 g/dl (32.0-35.9); MEAN CELL VOLUME 87.5 fl (80-96); MEAN PLT VOLUME 7.9 fl (7.5-11.1); MONO % 7.7 % (3.8-10.2); PLATELET COUNT 223 K/MM3 (134-434); RBC 3.15 M/mm3 (4.00-5.60); RDW 15.2 % (11.9-15.9); WHITE BLOOD COUNT 5.5 K/mm3 (4.0-10.0)
[2020-05-27 08:25] LABS: POTASSIUM 3.8 mmol/L (3.5-5.1)
[2020-05-27 08:34] LABS: CALCIUM 10.9 mg/dL (8.5-10.1)
[2020-05-27 08:35] LABS: ALBUMIN 1.9 g/dl (3.4-5.0); BLOOD UREA NITROGEN 69.1 mg/dL (7-18)
[2020-05-27 08:38] LABS: CREATININE 3.4 mg/dL (0.55-1.3); URIC ACID 4.5 mg/dL (2.6-7.2)
[2020-05-27 08:39] LABS: BILIRUBIN,TOTAL 0.7 mg/dL (0.2-1)
[2020-05-27] MEDS ORDERED: PEG 3350/NA SULF BICARB CL/KCL 4000 ML SOLN.RECON PO ONE (09:00)
[2020-05-27] MEDS ORDERED: ACETAMINOPHEN 325 MG TABLET (FP) PO PRN (09:17)
[2020-05-27] MEDS: FOLIC ACID 1 MG TABLET (FP) PO SCH (10:20)
[2020-05-27] MEDS: VITAMIN B COMPLEX W/C COMBO TABLET (FP) PO SCH (10:20)
[2020-05-27] MEDS: ALLOPURINOL 300 MG TABLET (FP) PO SCH (10:20)
[2020-05-27] MEDS: TAMSULOSIN HCL 0.4 MG CAP PO SCH (10:20)
[2020-05-27] MEDS: MIDODRINE HCL 5 MG TABLET PO SCH ×3 (10:20→17:03)
[2020-05-27] MEDS: THIAMINE HCL 100 MG TABLET (FP) PO SCH (10:20)
[2020-05-27] MEDS: PANTOPRAZOLE SODIUM 40 MG VIAL IVPUSH SCH ×2 (10:21→21:05)
[2020-05-27] MEDS: ATORVASTATIN CA 10 MG TABLET (FP) PO SCH (10:21)
[2020-05-27] MEDS ORDERED: PT OWN MED DRAWER 7, Y5N ONE (10:22)
[2020-05-27] MEDS: MEGESTROL ACETATE 400 MG/10 ML UNIT DOSE CUP PO SCH (10:23)
[2020-05-27] MEDS: metoPROLOL SUCCINATE 25 MG TAB.SR.24H (FP) PO SCH (10:46)
[2020-05-27] MEDS ORDERED: FERRIC CARBOXYMALTOSE 750 MG in SODIUM CHLORIDE 250 ML IVPB ONE (11:00)
[2020-05-27] MEDS ORDERED: BISACODYL 5 MG TABLET.DR (FP) PO ONE (18:00)
[2020-05-28] MEDS: POLYETHYLENE GLYCOL 3350 119 GM BTL PO SCH ×2 (05:54→14:36)
[2020-05-28 08:28] LABS: BASO % 1.3 % (0-2.0); EOS % 1.3 % (0-4.5); HEMATOCRIT 25.8 % (35.4-49); HEMOGLOBIN 8.4 GM/dL (11.7-16.9); LYMPH % 7.1 % (8-40); MCH 28.5 pg (25.7-33.7); MCHC 32.6 g/dl (32.0-35.9); MEAN CELL VOLUME 87.3 fl (80-96); MEAN PLT VOLUME 8.1 fl (7.5-11.1); MONO % 7.8 % (3.8-10.2); NEUT % 82.5 % (42.8-82.8); PLATELET COUNT 205 K/MM3 (134-434); RBC 2.96 M/mm3 (4.00-5.60); RDW 15.3 % (11.9-15.9)
[2020-05-28 08:51] LABS: POTASSIUM 3.3 mmol/L (3.5-5.1)
[2020-05-28 08:59] LABS: CALCIUM 10.7 mg/dL (8.5-10.1)
[2020-05-28 09:00] LABS: ALBUMIN 1.8 g/dl (3.4-5.0); BLOOD UREA NITROGEN 52.7 mg/dL (7-18)
[2020-05-28] MEDS: metoPROLOL SUCCINATE 25 MG TAB.SR.24H (FP) PO SCH (09:00)
[2020-05-28] MEDS: MIDODRINE HCL 5 MG TABLET PO SCH ×3 (09:00→18:01)
[2020-05-28 09:03] LABS: CREATININE 2.9 mg/dL (0.55-1.3)
[2020-05-28 09:05] LABS: BILIRUBIN,TOTAL 0.4 mg/dL (0.2-1); TOT PROT 3.9 g/dl (6.4-8.2)
[2020-05-28] MEDS: PANTOPRAZOLE SODIUM 40 MG VIAL IVPUSH SCH (10:04)
[2020-05-28] MEDS ORDERED: POTASSIUM CHLORIDE TABS 10 MEQ TABLET.ER (FP) PO ONE (10:52)
[2020-05-28] MEDS ORDERED: DEXTROSE 5%-WATER - 50 ML IVPB ONE (12:32)
[2020-05-28] MEDS ORDERED: cefTRIAXone SODIUM 1 GM VIAL ONE (12:32)
[2020-05-28] MEDS ORDERED: PT OWN MED DRAWER 7, Y5N ONE (12:32)
[2020-05-28] MEDS: VITAMIN B COMPLEX W/C COMBO TABLET (FP) PO SCH (13:14)
[2020-05-28] MEDS: ALLOPURINOL 300 MG TABLET (FP) PO SCH (13:15)
[2020-05-28] MEDS: TAMSULOSIN HCL 0.4 MG CAP PO SCH (13:15)
[2020-05-28] MEDS: FOLIC ACID 1 MG TABLET (FP) PO SCH (13:15)
[2020-05-28] MEDS: MEGESTROL ACETATE 400 MG/10 ML UNIT DOSE CUP PO SCH (13:15)
[2020-05-28] MEDS: CEFTRIAXONE 1 GM in DEXTROSE 5%-WATER - 50 ML IVPB SCH (13:15)
[2020-05-28] MEDS: ATORVASTATIN CA 10 MG TABLET (FP) PO SCH (13:15)
[2020-05-28] MEDS: THIAMINE HCL 100 MG TABLET (FP) PO SCH (13:15)
[2020-05-28] MEDS: KCL 10 MEQ IVPB 10 MEQ/100 ML INFUS.BAG IVPB SCH ×2 (13:19→14:37)
[2020-05-28] MEDS: POTASSIUM CHLORIDE 10 MEQ in SODIUM CHLORIDE 0.45% 1,000 ML IVPB SCH (14:34)
[2020-05-28] MEDS: PANTOPRAZOLE 40 MG TABLET PO SCH (21:25)
[2020-05-28 23:07] LABS: URINE APPEARANCE CLEAR; URINE BILIRUBIN NEGATIVE (NEGATIVE); URINE COLOR YELLOW; URINE GLUCOSE (UA) NEGATIVE (NEGATIVE); URINE KETONE NEGATIVE (NEGATIVE); URINE LEUK ESTERASE NEGATIVE (NEGATIVE); URINE NITRITE NEGATIVE (NEGATIVE); URINE PROTEIN NEGATIVE (NEGATIVE); URINE UROBILINOGEN 0.2 mg/dL (0.2-1.0)
[2020-05-29] MEDS: POTASSIUM CHLORIDE 10 MEQ in SODIUM CHLORIDE 0.45% 1,000 ML IVPB SCH ×2 (00:30→14:53)
[2020-05-29 07:46] LABS: BASO % 1.3 % (0-2.0); EOS % 1.1 % (0-4.5); HEMOGLOBIN 8.3 GM/dL (11.7-16.9); LYMPH % 6.3 % (8-40); MCH 29.4 pg (25.7-33.7); MCHC 33.3 g/dl (32.0-35.9); MEAN CELL VOLUME 88.2 fl (80-96); MONO % 8.8 % (3.8-10.2); NEUT % 82.5 % (42.8-82.8); PLATELET COUNT 194 K/MM3 (134-434); RBC 2.83 M/mm3 (4.00-5.60); RDW 15.1 % (11.9-15.9); WHITE BLOOD COUNT 5.3 K/mm3 (4.0-10.0)
[2020-05-29 08:02] LABS: POTASSIUM 4.1 mmol/L (3.5-5.1)
[2020-05-29 08:05] LABS: ALBUMIN 1.8 g/dl (3.4-5.0); BLOOD UREA NITROGEN 38.8 mg/dL (7-18); CALCIUM 10.2 mg/dL (8.5-10.1)
[2020-05-29 08:06] LABS: MAGNESIUM 1.2 mg/dL (1.8-2.4)
[2020-05-29 08:09] LABS: CREATININE 2.6 mg/dL (0.55-1.3)
[2020-05-29 08:10] LABS: TOT PROT 3.7 g/dl (6.4-8.2)
[2020-05-29] MEDS ORDERED: DEXTROSE 5%-WATER - 50 ML IVPB ONE (08:32)
[2020-05-29] MEDS ORDERED: cefTRIAXone SODIUM 1 GM VIAL ONE (08:32)
[2020-05-29] MEDS ORDERED: IRON SUCROSE INJECTION 200 MG in SODIUM CHLORIDE 90 ML IVPB ONE (09:00)
[2020-05-29] MEDS: VITAMIN B COMPLEX W/C COMBO TABLET (FP) PO SCH (09:19)
[2020-05-29] MEDS: TAMSULOSIN HCL 0.4 MG CAP PO SCH (09:19)
[2020-05-29] MEDS: CEFTRIAXONE 1 GM in DEXTROSE 5%-WATER - 50 ML IVPB SCH (09:19)
[2020-05-29] MEDS: FOLIC ACID 1 MG TABLET (FP) PO SCH (09:20)
[2020-05-29] MEDS: THIAMINE HCL 100 MG TABLET (FP) PO SCH (09:20)
[2020-05-29] MEDS: ALLOPURINOL 300 MG TABLET (FP) PO SCH (09:20)
[2020-05-29] MEDS: MIDODRINE HCL 5 MG TABLET PO SCH ×3 (09:20→17:50)
[2020-05-29] MEDS: PANTOPRAZOLE 40 MG TABLET PO SCH ×2 (09:20→21:09)
[2020-05-29] MEDS: ATORVASTATIN CA 10 MG TABLET (FP) PO SCH (09:20)
[2020-05-29] MEDS: metoPROLOL SUCCINATE 25 MG TAB.SR.24H (FP) PO SCH (09:21)
[2020-05-29] MEDS: POLYETHYLENE GLYCOL 3350 119 GM BTL PO SCH (09:24)
[2020-05-29] MEDS ORDERED: PT OWN MED DRAWER 7, Y5N ONE (09:24)
[2020-05-29] MEDS: MEGESTROL ACETATE 400 MG/10 ML UNIT DOSE CUP PO SCH (09:25)
[2020-05-29] MEDS ORDERED: MAGNESIUM SULF 50% (8.12 MEQ/2 ML-1 GM VIAL) IVPB ONE (09:57)
[2020-05-29] MEDS: SODIUM CHLORIDE 0.45% 1,000 ML IV SCH (17:50)
[2020-05-30 07:27] LABS: EOS % 1.3 % (0-4.5); HEMATOCRIT 24.2 % (35.4-49); HEMOGLOBIN 8.1 GM/dL (11.7-16.9); LYMPH % 6.6 % (8-40); MCH 29.3 pg (25.7-33.7); MCHC 33.5 g/dl (32.0-35.9); MEAN CELL VOLUME 87.6 fl (80-96); MEAN PLT VOLUME 8.1 fl (7.5-11.1); MONO % 9.9 % (3.8-10.2); NEUT % 81.2 % (42.8-82.8); PLATELET COUNT 178 K/MM3 (134-434); RBC 2.76 M/mm3 (4.00-5.60); RDW 15.7 % (11.9-15.9); WHITE BLOOD COUNT 5.8 K/mm3 (4.0-10.0)
[2020-05-30 07:56] LABS: POTASSIUM 4.1 mmol/L (3.5-5.1)
[2020-05-30 07:58] LABS: CALCIUM 10.1 mg/dL (8.5-10.1)
[2020-05-30 07:59] LABS: ALBUMIN 1.7 g/dl (3.4-5.0); BLOOD UREA NITROGEN 31.8 mg/dL (7-18)
[2020-05-30 08:02] LABS: CREATININE 2.5 mg/dL (0.55-1.3)
[2020-05-30 08:03] LABS: BILIRUBIN,TOTAL 0.6 mg/dL (0.2-1)
[2020-05-30 08:04] LABS: TOT PROT 3.6 g/dl (6.4-8.2)
[2020-05-30] MEDS: TAMSULOSIN HCL 0.4 MG CAP PO SCH (08:56)
[2020-05-30] MEDS ORDERED: DEXTROSE 5%-WATER - 50 ML IVPB ONE (09:28)
[2020-05-30] MEDS ORDERED: cefTRIAXone SODIUM 1 GM VIAL ONE (09:28)
[2020-05-30] MEDS: CEFTRIAXONE 1 GM in DEXTROSE 5%-WATER - 50 ML IVPB SCH (11:55)
[2020-05-30] MEDS: POLYETHYLENE GLYCOL 3350 119 GM BTL PO SCH (11:56)
[2020-05-30] MEDS: PANTOPRAZOLE 40 MG TABLET PO SCH ×2 (11:56→21:19)
[2020-05-30] MEDS: VITAMIN B COMPLEX W/C COMBO TABLET (FP) PO SCH (11:56)
[2020-05-30] MEDS: MIDODRINE HCL 5 MG TABLET PO SCH ×3 (11:56→17:20)
[2020-05-30] MEDS: FOLIC ACID 1 MG TABLET (FP) PO SCH (11:56)
[2020-05-30] MEDS: ATORVASTATIN CA 10 MG TABLET (FP) PO SCH (11:56)
[2020-05-30] MEDS: MEGESTROL ACETATE 400 MG/10 ML UNIT DOSE CUP PO SCH (11:57)
[2020-05-30] MEDS: THIAMINE HCL 100 MG TABLET (FP) PO SCH (11:57)
[2020-05-30] MEDS: metoPROLOL SUCCINATE 25 MG TAB.SR.24H (FP) PO SCH (11:57)
[2020-05-30] MEDS: ALLOPURINOL 300 MG TABLET (FP) PO SCH (11:57)
[2020-05-30] MEDS: SODIUM CHLORIDE 0.45% 1,000 ML IV SCH (16:27)
[2020-05-30 19:07] LABS: HEP B CORE AB, TOT Negative (Negative)
[2020-05-31] MEDS ORDERED: cefTRIAXone SODIUM 1 GM VIAL ONE (09:47)
[2020-05-31] MEDS ORDERED: PT OWN MED DRAWER 7, Y5N ONE (09:47)
[2020-05-31] MEDS ORDERED: DEXTROSE 5%-WATER - 50 ML IVPB ONE (09:47)
[2020-05-31] MEDS: CEFTRIAXONE 1 GM in DEXTROSE 5%-WATER - 50 ML IVPB SCH (09:56)
[2020-05-31] MEDS: POLYETHYLENE GLYCOL 3350 119 GM BTL PO SCH (09:57)
[2020-05-31] MEDS: PANTOPRAZOLE 40 MG TABLET PO SCH ×2 (09:58→21:02)
[2020-05-31] MEDS: metoPROLOL SUCCINATE 25 MG TAB.SR.24H (FP) PO SCH (09:58)
[2020-05-31] MEDS: MEGESTROL ACETATE 400 MG/10 ML UNIT DOSE CUP PO SCH (09:58)
[2020-05-31] MEDS: ALLOPURINOL 300 MG TABLET (FP) PO SCH (09:58)
[2020-05-31] MEDS: ATORVASTATIN CA 10 MG TABLET (FP) PO SCH (09:58)
[2020-05-31] MEDS: VITAMIN B COMPLEX W/C COMBO TABLET (FP) PO SCH (09:58)
[2020-05-31] MEDS: MIDODRINE HCL 5 MG TABLET PO SCH ×3 (09:58→17:43)
[2020-05-31] MEDS: TAMSULOSIN HCL 0.4 MG CAP PO SCH (09:58)
[2020-05-31] MEDS: FOLIC ACID 1 MG TABLET (FP) PO SCH (09:58)
[2020-05-31] MEDS: THIAMINE HCL 100 MG TABLET (FP) PO SCH (09:58)
[2020-05-31] MEDS ORDERED: BISACODYL 5 MG TABLET.DR (FP) PO ONE ×2 (10:00→18:00)
[2020-05-31 10:43] LABS: BASO % 0.6 % (0-2.0); EOS % 0.4 % (0-4.5); HEMATOCRIT 24.8 % (35.4-49); HEMOGLOBIN 8.2 GM/dL (11.7-16.9); LYMPH % 3.7 % (8-40); MCH 29.3 pg (25.7-33.7); MCHC 33.1 g/dl (32.0-35.9); MEAN CELL VOLUME 88.3 fl (80-96); MEAN PLT VOLUME 8.4 fl (7.5-11.1); MONO % 11.5 % (3.8-10.2); NEUT % 83.8 % (42.8-82.8); PLATELET COUNT 186 K/MM3 (134-434); RDW 15.5 % (11.9-15.9); WHITE BLOOD COUNT 7.9 K/mm3 (4.0-10.0)
[2020-05-31 11:01] LABS: POTASSIUM 3.7 mmol/L (3.5-5.1)
[2020-05-31 11:03] LABS: CALCIUM 9.9 mg/dL (8.5-10.1)
[2020-05-31 11:04] LABS: ALBUMIN 1.6 g/dl (3.4-5.0); BLOOD UREA NITROGEN 27.2 mg/dL (7-18)
[2020-05-31 11:07] LABS: CREATININE 2.5 mg/dL (0.55-1.3)
[2020-05-31 11:08] LABS: BILIRUBIN,TOTAL 0.4 mg/dL (0.2-1); TOT PROT 3.7 g/dl (6.4-8.2)
[2020-05-31] MEDS: SODIUM CHLORIDE 0.45% 1,000 ML IV SCH (16:40)
[2020-06-01] MEDS: SODIUM CHLORIDE 0.45% 1,000 ML IV SCH (02:30)
[2020-06-01 08:18] LABS: EOS % 0.9 % (0-4.5); HEMATOCRIT 24.8 % (35.4-49); HEMOGLOBIN 8.4 GM/dL (11.7-16.9); LYMPH % 4.7 % (8-40); MCH 29.6 pg (25.7-33.7); MCHC 33.7 g/dl (32.0-35.9); MEAN CELL VOLUME 87.8 fl (80-96); MEAN PLT VOLUME 8.6 fl (7.5-11.1); MONO % 10.3 % (3.8-10.2); NEUT % 83.1 % (42.8-82.8); PLATELET COUNT 177 K/MM3 (134-434); RBC 2.83 M/mm3 (4.00-5.60); RDW 15.9 % (11.9-15.9); WHITE BLOOD COUNT 7.2 K/mm3 (4.0-10.0)
[2020-06-01 08:29] LABS: ALBUMIN 1.6 g/dl (3.4-5.0); BLOOD UREA NITROGEN 26.1 mg/dL (7-18); CALCIUM 10.1 mg/dL (8.5-10.1)
[2020-06-01 08:32] LABS: CREATININE 2.5 mg/dL (0.55-1.3)
[2020-06-01 08:34] LABS: BILIRUBIN,TOTAL 0.4 mg/dL (0.2-1); TOT PROT 3.9 g/dl (6.4-8.2)
[2020-06-01] MEDS: TAMSULOSIN HCL 0.4 MG CAP PO SCH (10:03)
[2020-06-01] MEDS ORDERED: ETOMIDATE 20 MG/10 ML AMPUL IVPUSH ONE (10:10)
[2020-06-01] MEDS ORDERED: PT OWN MED DRAWER 7, Y5N ONE (12:21)
[2020-06-01] MEDS ORDERED: cefTRIAXone SODIUM 1 GM VIAL ONE (12:22)
[2020-06-01] MEDS ORDERED: DEXTROSE 5%-WATER - 50 ML IVPB ONE (12:22)
[2020-06-01] MEDS: CEFTRIAXONE 1 GM in DEXTROSE 5%-WATER - 50 ML IVPB SCH (12:34)
[2020-06-01] MEDS: MIDODRINE HCL 5 MG TABLET PO SCH ×3 (12:35→17:14)
[2020-06-01] MEDS: ATORVASTATIN CA 10 MG TABLET (FP) PO SCH (12:35)
[2020-06-01] MEDS: PANTOPRAZOLE 40 MG TABLET PO SCH ×2 (12:35→21:32)
[2020-06-01] MEDS: VITAMIN B COMPLEX W/C COMBO TABLET (FP) PO SCH (12:35)
[2020-06-01] MEDS: THIAMINE HCL 100 MG TABLET (FP) PO SCH (12:35)
[2020-06-01] MEDS: ALLOPURINOL 300 MG TABLET (FP) PO SCH (12:36)
[2020-06-01] MEDS: FOLIC ACID 1 MG TABLET (FP) PO SCH (12:36)
[2020-06-01] MEDS: MEGESTROL ACETATE 400 MG/10 ML UNIT DOSE CUP PO SCH (12:36)
[2020-06-01] MEDS: metoPROLOL SUCCINATE 25 MG TAB.SR.24H (FP) PO SCH (12:40)
[2020-06-01] MEDS: POLYETHYLENE GLYCOL 3350 119 GM BTL PO SCH (13:30)
[2020-06-01 15:36] VITALS: BMI 22.7
[2020-06-02] MEDS: SODIUM CHLORIDE 0.45% 1,000 ML IV SCH (06:49)
[2020-06-02] MEDS ORDERED: PT OWN MED DRAWER 7, Y5N ONE (09:16)
[2020-06-02] MEDS ORDERED: DEXTROSE 5%-WATER - 50 ML IVPB ONE (09:16)
[2020-06-02] MEDS ORDERED: cefTRIAXone SODIUM 1 GM VIAL ONE (09:16)
[2020-06-02] MEDS: TAMSULOSIN HCL 0.4 MG CAP PO SCH (09:40)
[2020-06-02] MEDS: THIAMINE HCL 100 MG TABLET (FP) PO SCH (09:40)
[2020-06-02] MEDS: MIDODRINE HCL 5 MG TABLET PO SCH ×3 (09:40→17:33)
[2020-06-02] MEDS: FOLIC ACID 1 MG TABLET (FP) PO SCH (09:40)
[2020-06-02] MEDS: MEGESTROL ACETATE 400 MG/10 ML UNIT DOSE CUP PO SCH (09:40)
[2020-06-02] MEDS: PANTOPRAZOLE 40 MG TABLET PO SCH ×2 (09:40→23:47)
[2020-06-02] MEDS: VITAMIN B COMPLEX W/C COMBO TABLET (FP) PO SCH (09:40)
[2020-06-02] MEDS: ALLOPURINOL 300 MG TABLET (FP) PO SCH (09:41)
[2020-06-02] MEDS: ATORVASTATIN CA 10 MG TABLET (FP) PO SCH (09:42)
[2020-06-02] MEDS: CEFTRIAXONE 1 GM in DEXTROSE 5%-WATER - 50 ML IVPB SCH (09:42)
[2020-06-02] MEDS: metoPROLOL SUCCINATE 25 MG TAB.SR.24H (FP) PO SCH (09:42)
[2020-06-03 07:35] LABS: BASO % 2.1 % (0-2.0); EOS % 1.8 % (0-4.5); HEMATOCRIT 27.2 % (35.4-49); LYMPH % 6.6 % (8-40); MCH 29.4 pg (25.7-33.7); MCHC 33.1 g/dl (32.0-35.9); MEAN CELL VOLUME 89.1 fl (80-96); MEAN PLT VOLUME 8.5 fl (7.5-11.1); MONO % 10.1 % (3.8-10.2); NEUT % 79.4 % (42.8-82.8); PLATELET COUNT 200 K/MM3 (134-434); RBC 3.05 M/mm3 (4.00-5.60); RDW 16.1 % (11.9-15.9); WHITE BLOOD COUNT 5.6 K/mm3 (4.0-10.0)
[2020-06-03 07:41] LABS: POTASSIUM 3.5 mmol/L (3.5-5.1)
[2020-06-03 07:45] LABS: CALCIUM 10.5 mg/dL (8.5-10.1)
[2020-06-03 07:46] LABS: ALBUMIN 1.6 g/dl (3.4-5.0); BLOOD UREA NITROGEN 21.6 mg/dL (7-18); MAGNESIUM 1.4 mg/dL (1.8-2.4)
[2020-06-03 07:49] LABS: CREATININE 2.3 mg/dL (0.55-1.3); PHOSPHOROUS 2.9 mg/dL (2.5-4.9)
[2020-06-03 07:51] LABS: TOT PROT 3.9 g/dl (6.4-8.2)
[2020-06-03] MEDS ORDERED: MAGNESIUM SULF 50% (8.12 MEQ/2 ML-1 GM VIAL) IVPB ONE (08:30)
[2020-06-03] MEDS ORDERED: cefTRIAXone SODIUM 1 GM VIAL ONE (09:00)
[2020-06-03] MEDS ORDERED: DEXTROSE 5%-WATER - 50 ML IVPB ONE (09:00)
[2020-06-03] MEDS: CEFTRIAXONE 1 GM in DEXTROSE 5%-WATER - 50 ML IVPB SCH (09:03)
[2020-06-03] MEDS: TAMSULOSIN HCL 0.4 MG CAP PO SCH (09:03)
[2020-06-03] MEDS: VITAMIN B COMPLEX W/C COMBO TABLET (FP) PO SCH (09:03)
[2020-06-03] MEDS: ATORVASTATIN CA 10 MG TABLET (FP) PO SCH (09:04)
[2020-06-03] MEDS: MIDODRINE HCL 5 MG TABLET PO SCH (09:04)
[2020-06-03] MEDS: THIAMINE HCL 100 MG TABLET (FP) PO SCH (09:04)
[2020-06-03] MEDS: PANTOPRAZOLE 40 MG TABLET PO SCH (09:04)
[2020-06-03] MEDS: metoPROLOL SUCCINATE 25 MG TAB.SR.24H (FP) PO SCH (09:04)
[2020-06-03] MEDS: ALLOPURINOL 300 MG TABLET (FP) PO SCH (09:05)
[2020-06-03] MEDS: FOLIC ACID 1 MG TABLET (FP) PO SCH (09:05)
[2020-06-03] MEDS ORDERED: PT OWN MED DRAWER 7, Y5N ONE (09:07)
[2020-06-03] MEDS: POLYETHYLENE GLYCOL 3350 119 GM BTL PO SCH ×2 (09:23→10:12)
[2020-06-03] MEDS ORDERED: MAGNESIUM OXIDE 400 MG TABLET (FP) PO SCH (10:00)
[2020-06-03] MEDS: MEGESTROL ACETATE 400 MG/10 ML UNIT DOSE CUP PO SCH (10:23)
[2020-06-03 15:39] VITALS: BP 108/69; PULSE 69; TEMP 98.1
[2020-06-03] MEDS ORDERED: CEFUROXIME AXETIL 250 MG TABLET PO SCH (22:00)
== END 2020-06-03 14:00 | DRG 841 ==
LOC: JER 11:46 → JERBED 19:15 → J4W 05-26 02:11
PROVIDERS: ADMIT Hospitalist; ATTEND Family Medicine
PROC: 30233N1 Transfusion of Nonautologous Red Blood Cells into Peripheral Vein, Percutaneous Approach (ICD-10-PCS; 2020-05-25)
PROC: 0DJ08ZZ Inspection of Upper Intestinal Tract, Via Natural or Artificial Opening Endoscopic (ICD-10-PCS; 2020-05-28)
PROC: 0DBP8ZX Excision of Rectum, Via Natural or Artificial Opening Endoscopic, Diagnostic (ICD-10-PCS; 2020-06-01)
PROC: 0DBN8ZX Excision of Sigmoid Colon, Via Natural or Artificial Opening Endoscopic, Diagnostic (ICD-10-PCS; 2020-06-01)
PROC: 0DB98ZX Excision of Duodenum, Via Natural or Artificial Opening Endoscopic, Diagnostic (ICD-10-PCS; principal; 2020-06-01 11:00)
DX: C85.10 Unspecified B-cell lymphoma, unspecified site (principal); K92.2 Gastrointestinal hemorrhage, unspecified; N17.9 Acute kidney failure, unspecified; N39.0 Urinary tract infection, site not specified; D64.9 Anemia, unspecified; N18.9 Chronic kidney disease, unspecified; K76.0 Fatty (change of) liver, not elsewhere classified; N40.0 Benign prostatic hyperplasia without lower urinary tract symptoms; E83.52 Hypercalcemia; I48.0 Paroxysmal atrial fibrillation; D72.829 Elevated white blood cell count, unspecified; B96.1 Klebsiella pneumoniae [K. pneumoniae] as the cause of diseases classified elsewhere; R55 Syncope and collapse; K62.1 Rectal polyp; K64.8 Other hemorrhoids; K44.9 Diaphragmatic hernia without obstruction or gangrene; K21.00 Gastro-esophageal reflux disease with esophagitis, without bleeding; E78.5 Hyperlipidemia, unspecified; I10 Essential (primary) hypertension; I25.10 Atherosclerotic heart disease of native coronary artery without angina pectoris; F03.90 Unspecified dementia, unspecified severity, without behavioral disturbance, psychotic disturbance, mood disturbance, and anxiety; I95.9 Hypotension, unspecified; K31.7 Polyp of stomach and duodenum
CPT/HCPCS: 36415; 36430; 71045-TC-FY; 80053; 80061; 80074; 81003; 82272; 82550; 82728; 82962; 83036; 83540; 83550; 83605; 83615; 83721; 83735; 84100; 84436; 84443; 84484; 84550; 85025; 85027; 85045; 85610; 85730; 86140; 86704; 86705; 86706; 86707; 86708; 86709; 86803; 86850; 86900; 86901; 86922; 87086; 87186; 87340; 87350; 88305-TC; 93005; 93010; 93306-TC; 97116-GP; 97162-GP; 99291; C9803; J1439; J1756; P9058; U0003